=== PATIENT | male | born 1965 | race Two or more races ===

== ENCOUNTER 2017-02-23 14:14 | Emergency (ER) | payer OTHER ==
[~2017-02-23] VITALS: Ht 175.3 cm; Wt 79.4 kg
[2017-02-23 14:33] VITALS: BP 111/63
--- NOTE | 2017-02-23 14:42 | NUR ---
MD BRANHAM AT BEDSIDE
== END 2017-02-23 15:01 | disposition home or self-care (01) ==
LOC: ER 14:22
DX: K42.9 Umbilical hernia without obstruction or gangrene (principal)
CPT/HCPCS: A4606; Z7502; Z7610

== ENCOUNTER 2019-05-06 10:07 | Emergency (ER) | payer OTHER ==
[~2019-05-06] VITALS: Ht 175.3 cm; Wt 77.1 kg
--- NOTE | 2019-05-06 10:15 | NUR ---
PATIENT ARRIVED AT UNIT AMBULATORY. A/O X 4. NO ACUTE DISTRESS. WITH RIGHT INDEX FINGER SWELLING, NO BLEEDING, NO DRAINAGE NOTED. PATIENT REPORTED HE GOT CUT WITH GLASS SHARD LAST WEEK. REPORTED SWELLING STARTED 3 DAYS AGO. WILL CONTINUE TO MONITOR ACCORDINGLY
--- NOTE | 2019-05-06 10:16 | NUR ---
AT BEDSIDE FOR EVAL.
--- NOTE | 2019-05-06 10:23 | NUR ---
grader meat at bedside
--- NOTE | 2019-05-06 10:51 | NUR ---
Patient discharged to home in stable condition. Prescription provided to patient. Written and verbal after care instructions given. Patient verbalizes understanding of instruction.
[2019-05-06 10:53] VITALS: BP 130/72
== END 2019-05-06 10:53 | disposition home or self-care (01) ==
LOC: ER 10:10
DX: L03.012 Cellulitis of left finger (principal); L08.9 Local infection of the skin and subcutaneous tissue, unspecified; Z98.890 Other specified postprocedural states; Z60.2 Problems related to living alone
CPT/HCPCS: 73130-TC

== ENCOUNTER 2019-05-21 18:35 | Emergency (ER) | payer OTHER ==
[~2019-05-21] VITALS: Ht 175.3 cm; Wt 76.2 kg
--- NOTE | 2019-05-21 19:11 | NUR ---
PT AAOX4. AMBULATORY. C/O Nausea, vomiting, and diarrhea started this morning after pt drank oat meal. pt denies any N/V at the moment. RR even and unlabored. no acute distress noted. placed on monitor and pulse ox. no acute distress noted.
[2019-05-21] MEDS ORDERED: ONDANSETRON 4 MG TAB.RAPDIS ONE (19:18)
--- NOTE | 2019-05-21 19:22 | NUR ---
HORTICULTURAL NURSERY ASSISTANT AT BEDSIDE
[2019-05-21] MEDS ORDERED: ONDANSETRON 4 MG TAB.RAPDIS SL ONE (19:30)
[2019-05-21 19:32] LABS: BASOPHILS % (AUTO) 0.2 % (0.0-2.0); EOSINOPHILS % (AUTO) 0.5 % (0.0-6.0); HEMATOCRIT 46 % (39-51); HEMOGLOBIN 15.2 g/dL (13.5-17.5); LYMPHOCYTES # (AUTO) 0.2 /CMM (0.8-4.8); LYMPHOCYTES % (AUTO) 2.6 % (20.0-44.0); MEAN CORPUSCULAR HGB CONC 33 g/dl (31.0-36.0); MEAN CORPUSCULAR VOLUME 87 fL (80-96); MONOCYTES # (AUTO) 0.3 /CMM (0.1-1.30); MONOCYTES % (AUTO) 3.4 % (2.0-12.0); NEUTROPHILS # (AUTO) 8.5 /CMM (1.8-8.9); NEUTROPHILS % (AUTO) 93.3 % (43.0-81.0); PLATELET COUNT (AUTO) 197 /CMM (150-450); WHITE BLOOD COUNT (AUTO) 9.1 K/uL (4.3-11.0)
[2019-05-21 19:46] LABS: BILIRUBIN,DIRECT 0.1 mg/dL (0.0-0.2); BILIRUBIN,TOTAL 0.7 mg/dL (0.2-1.0); CALCIUM, SERUM 8.6 mg/dL (8.5-10.1); CREATININE 0.8 mg/dL (0.6-1.3); POTASSIUM 3.9 mmol/L (3.5-5.1); TOTAL PROTEIN, SERUM 7.9 g/dL (6.4-8.2)
--- NOTE | 2019-05-21 20:01 | NUR ---
PT AMBULATED TO RESTROOM.
[2019-05-21 20:59] VITALS: BP 126/82
--- NOTE | 2019-05-21 20:59 | NUR ---
Patient discharged to home in stable condition. Written and verbal after care instructions given. Patient verbalizes understanding of instruction and RX. PT ambulatory with a steady gait.
== END 2019-05-21 21:00 | disposition home or self-care (01) ==
LOC: ER 18:35
DX: R11.10 Vomiting, unspecified (principal); R19.7 Diarrhea, unspecified; Z72.52 High risk homosexual behavior; Z98.890 Other specified postprocedural states; Z60.2 Problems related to living alone
CPT/HCPCS: 36415; 80048; 80076; 85025; 99283; Q0162

== ENCOUNTER 2020-03-11 13:21 | Emergency (ER) | payer OTHER ==
[~2020-03-11] VITALS: Ht 175.3 cm; Wt 74.8 kg
--- NOTE | 2020-03-11 13:30 | NUR ---
From home with c/o rectal discomfort. VSS. Placed to ER bed 14.
[2020-03-11 14:40] VITALS: BP 140/77
--- NOTE | 2020-03-11 14:40 | NUR ---
Patient discharged to home in stable condition. Written and verbal after care instructions given. Patient verbalizes understanding of instruction.
== END 2020-03-11 14:43 | disposition home or self-care (01) ==
LOC: ER 13:25
DX: K64.4 Residual hemorrhoidal skin tags (principal); Z98.890 Other specified postprocedural states; Z60.2 Problems related to living alone